=== PATIENT | female | born 1980 | race Two or more races ===

== ENCOUNTER → 2024-03-21 | Outpatient (CLI) | payer MEDICAID, SELFPAY ==
--- NOTE | 2024-03-21 15:56 | XR_ITS ---
Examination: Abdomen AP single view Technique: AP portable supine abdomen, single view Exam date and time: March 21, 2024 1627 hrs. Indications: Left flank pain beginning 3 months ago. Findings: Abundant stool in the right colon overlying the right kidney No renal or ureteral calculi Nonobstructive bowel gas pattern. No free air Impression: No renal or ureteral calculi
== END | disposition home or self-care (01) ==
LOC: CDIM 15:46
PROVIDERS: Referring Provider Surgery; Visit Provider Surgery
DX: N20.0 Calculus of kidney (principal)
CPT/HCPCS: 74018

== ENCOUNTER → 2024-04-28 | Outpatient (CLI) | payer MEDICAID, SELFPAY ==
--- NOTE | 2024-04-28 15:30 | XR_ITS ---
Examination: CT abdomen and pelvis without contrast. Coronal 3-D reconstructions. Sagittal 2-D reconstructions. Date and time of exam:April 28, 2024 1720 hrs. Indications: Left flank pain left lower abdominal pain hematuria this week, history kidney stones on CT study August 06, 2019 CTDI: vol (mGy): 7.39 DLP: (mGycm): 391 Technique: Axial images of the abdomen have been obtained, 3 mm slice thickness Intravenous contrast material has not been administered. Low dose protocols were performed. One or more of the following dose reduction techniques were used; automated exposure control, adjustment of the mA and/or KV according to patient size, use of iterative reconstruction technique. Findings: Multiple 1 to 2 mm lower lobe pulmonary nodules No focal liver or splenic lesion Contracted gallbladder No pancreatic mass No adrenal mass No renal or ureteral calculi, no hydronephrosis No pericecal inflammatory change Anteverted uterus with massively enlarged fundus of uterus at least 13 cm, compressing the urinary bladder Urinary bladder wall thickening up to 7 mm Impression: Multiple subcentimeter pulmonary nodules, recommend PA lateral chest follow-up No renal or ureteral calculi, no hydronephrosis Recommend pelvic sonography to assess massively enlarged fundus of uterus Cystitis pattern
[2024-04-28 17:04] LABS: HCG Qualitative,Urine Negative
== END | disposition home or self-care (01) ==
PROVIDERS: PCP Surgery; Referring Provider Radiology Diagnostic Radiology; Visit Provider Surgery
DX: R91.8 Other nonspecific abnormal finding of lung field (principal); Z32.00 Encounter for pregnancy test, result unknown
CPT/HCPCS: 74176; 81025

== ENCOUNTER → 2024-06-30 | Outpatient (CLI) | payer MEDICAID, SELFPAY ==
--- NOTE | 2024-06-30 09:00 | XR_ITS ---
Examination: Screening digital mammography, bilateral Computer aided detection 3-D breast Tomosynthesis, bilateral Date and time of exam: 06/30/2024, 8:49 AM Comparisons: October 2019 through February 2022 Indications: Screening Technique: Nonmagnified MLO, CC views of the breasts to been obtained, reconstructed from 3-D Tomosynthesis images. R2 computer aided detection program utilized for evaluation of suspicious masses and/or abnormal calcifications. 3-D Tomosynthesis images obtained. Technologist: Findings: There are scattered areas of fibroglandular density. Multiple stable partially obscured oval masses bilaterally. No evidence of abnormal masses or suspicious calcifications. Multiple postbiopsy marker clips. Impression: BI-RADS category 1: Negative findings (within normal) Recommend 1 year follow-up mammogram
== END | disposition home or self-care (01) ==
LOC: CDIM 08:39
PROVIDERS: Referring Provider Physician Assistant; Visit Provider Physician Assistant
DX: Z12.31 Encounter for screening mammogram for malignant neoplasm of breast (principal); R92.313 Mammographic fatty tissue density, bilateral breasts
CPT/HCPCS: 77063; 77067